=== PATIENT | female | born 1960 | race Caucasian/White ===

== ENCOUNTER 2016-07-10 18:07 | Emergency (ER) | payer MEDICAID, OTHER ==
--- NOTE | 2016-07-10 18:13 | ED Physician Chart ---
Chief Complaint/HPI - Patient Information Date Seen:: 07/10/16 Time Seen:: 18:13 Chief Complaint:: abdominal pain History of Present Illness:: 55-year-old female history of diabetes and hypertension, complains of acute, severe, aching and burning, nonradiating, upper abdominal/epigastric abdominal pain 3 hours. Has associated nausea and vomiting. Historian:: Patient Review:: Nurse's Note Reviewed Review of Systems - Review of Systems Other: Complete system review otherwise unremarkable except as noted in HPI. Past Medical History - Past Medical History Past Medical History: HTN, DM, Dyslipidemia Family History: None Social History: Non Smoker, No Alcohol, No Drug Use, Surgical History: None Psychiatricy History: None Medication: Reviewed Family Medical History - Family Member Father Ethnicity: Hx Family Cancer: No Hx Family Coronary Artery Disease: No Hx Family Congestive Heart Failure: No Hx Family Stroke: No Hx Family Seizures: No Hx Family AIDS: No Hx Family COPD: No Hx Family Psychiatric Problems: No Physical Exam - Physical Examination Other:: INITIAL VITAL SIGNS: Reviewed by me GENERAL: Alert and interactive. No acute distress HEAD: Head is normocephalic and atraumatic EYES: EOMI. . No scleral icterus. No conjunctival injection ENT: Moist mucous membranes. NECK: Supple. No masses. Full range of motion RESPIRATORY: No tachypnea. Clear breath sounds bilaterally. No wheezing, rales, or rhonchi CV: Regular rate and rhythm. No murmurs, rubs, or gallops ABDOMEN: Soft, non-distended, tenderness with guarding on deep palpation to the right upper quadrant. EXTREMITIES: No deformity. No cyanosis. No edema. SKIN: Warm and dry. No obvious rashes. NEUROLOGIC: Alert and oriented. Face is symmetric. Speech is normal. Moves all extremities equally. Motor and sensory distally intact. Labs/Radiology/EKG Results - Lab Results Results: Lab Results 07/10/16 07/10/16 07/10/16 Range/Units 18:15 18:15 18:15 WBC 11.5 H (4.8-10.8) Th/cmm RBC 4.99 (3.80-5.10) Mil/cmm Hgb 14.3 (11.7-15.5) gm/dL Hct 42.7 (35.0-45.0) % MCV 85.6 (81-100) fl MCH 28.6 (27.0-31.0) pg MCHC Differential 33.4 (28.0-36.0) pg RDW 12.1 (11.5-20.0) % Plt Count 176 (150-400) Th/cmm MPV 10.0 fl Neutrophils % 73.7 (40.0-80.0) % Lymphocytes % 19.3 L (20.0-50.0) % Monocytes % 6.0 (2.0-10.0) % Eosinophils % 0.7 (0.0-5.0) % Basophils % 0.3 (0.0-2.0) % Sodium 136 (136-145) mEq/L Potassium 3.4 L (3.5-5.1) mEq/L Chloride 98 (98-107) mEq/L Carbon Dioxide 27.4 (21.0-31.0) mEq/L Anion Gap 14.0 (7.0-16.0) BUN 12 (7-25) mg/dL Creatinine 0.7 (0.6-1.2) mg/dL Est GFR ( Amer) > 60.0 (>90) ml/min Est GFR (Non-Af Amer) > 60.0 ml/min BUN/Creatinine Ratio 17.1 Glucose 153 H (70-105) mg/dL Calcium 10.6 H (8.6-10.3) mg/dL Total Bilirubin 0.9 (0.3-1.0) mg/dL AST 166 H (13-39) U/L ALT 77 H (7-52) U/L Alkaline Phosphatase 105 H (34-104) U/L Troponin I < 0.01 L (0.01-0.05) ng/mL Total Protein 8.2 (6.0-8.3) gm/dL Albumin 4.7 (3.7-5.3) gm/dL Globulin 3.5 gm/dL Albumin/Globulin Ratio 1.3 (1.0-1.8) Amylase 40 (29-103) U/L Urine Test 07/10/16 Range/Units 19:18 WBC (4.8-10.8) Th/cmm RBC (3.80-5.10) Mil/cmm Hgb (11.7-15.5) gm/dL Hct (35.0-45.0) % MCV (81-100) fl MCH (27.0-31.0) pg MCHC Differential (28.0-36.0) pg RDW (11.5-20.0) % Plt Count (150-400) Th/cmm MPV fl Neutrophils % (40.0-80.0) % Lymphocytes % (20.0-50.0) % Monocytes % (2.0-10.0) % Eosinophils % (0.0-5.0) % Basophils % (0.0-2.0) % Sodium (136-145) mEq/L Potassium (3.5-5.1) mEq/L Chloride (98-107) mEq/L Carbon Dioxide (21.0-31.0) mEq/L Anion Gap (7.0-16.0) BUN (7-25) mg/dL Creatinine (0.6-1.2) mg/dL Est GFR ( Amer) (>90) ml/min Est GFR (Non-Af Amer) ml/min BUN/Creatinine Ratio Glucose (70-105) mg/dL Calcium (8.6-10.3) mg/dL Total Bilirubin (0.3-1.0) mg/dL AST (13-39) U/L ALT (7-52) U/L Alkaline Phosphatase (34-104) U/L Troponin I (0.01-0.05) ng/mL Total Protein (6.0-8.3) gm/dL Albumin (3.7-5.3) gm/dL Globulin gm/dL Albumin/Globulin Ratio (1.0-1.8) Amylase (29-103) U/L Urine Test NEGATIVE Lab Results 07/10/16 07/10/16 07/10/16 Range/Units 18:15 18:15 18:15 WBC 11.5 H (4.8-10.8) Th/cmm RBC 4.99 (3.80-5.10) Mil/cmm Hgb 14.3 (11.7-15.5) gm/dL Hct 42.7 (35.0-45.0) % MCV 85.6 (81-100) fl MCH 28.6 (27.0-31.0) pg MCHC Differential 33.4 (28.0-36.0) pg RDW 12.1 (11.5-20.0) % Plt Count 176 (150-400) Th/cmm MPV 10.0 fl Neutrophils % 73.7 (40.0-80.0) % Lymphocytes % 19.3 L (20.0-50.0) % Monocytes % 6.0 (2.0-10.0) % Eosinophils % 0.7 (0.0-5.0) % Basophils % 0.3 (0.0-2.0) % Sodium 136 (136-145) mEq/L Potassium 3.4 L (3.5-5.1) mEq/L Chloride 98 (98-107) mEq/L Carbon Dioxide 27.4 (21.0-31.0) mEq/L Anion Gap 14.0 (7.0-16.0) BUN 12 (7-25) mg/dL Creatinine 0.7 (0.6-1.2) mg/dL Est GFR ( Amer) > 60.0 (>90) ml/min Est GFR (Non-Af Amer) > 60.0 ml/min BUN/Creatinine Ratio 17.1 Glucose 153 H (70-105) mg/dL Whole Bld Lactic Acid (0.60-1.99) mmol/L Calcium 10.6 H (8.6-10.3) mg/dL Total Bilirubin 0.9 (0.3-1.0) mg/dL AST 166 H (13-39) U/L ALT 77 H (7-52) U/L Alkaline Phosphatase 105 H (34-104) U/L Troponin I < 0.01 L (0.01-0.05) ng/mL Total Protein 8.2 (6.0-8.3) gm/dL Albumin 4.7 (3.7-5.3) gm/dL Globulin 3.5 gm/dL Albumin/Globulin Ratio 1.3 (1.0-1.8) Amylase 40 (29-103) U/L Lipase (11-82) U/L Urine Source Urine Color Urine Clarity (CLEAR) Urine pH Ur Specific [place] (1.005-1.030) Urine Protein (NEGATIVE) mg/dL Urine Glucose (UA) (NEGATIVE) mg/dL Urine Ketones (NEGATIVE) mg/dL Urine Blood (NEGATIVE) Urine Nitrate (NEGATIVE) Urine Bilirubin (NEGATIVE) Urine Urobilinogen (0.2 - 1.0) E.U./dL Ur Leukocyte Esterase (NEGATIVE) Urine RBC (0-5) /hpf Urine WBC (0-5) /hpf Ur Epithelial Cells (FEW) /lpf Amorphous Sediment (NONE SEEN) Urine Bacteria (NONE SEEN) /hpf Urine Test 07/10/16 07/10/16 07/10/16 Range/Units 19:18 19:18 19:25 WBC (4.8-10.8) Th/cmm RBC (3.80-5.10) Mil/cmm Hgb (11.7-15.5) gm/dL Hct (35.0-45.0) % MCV (81-100) fl MCH (27.0-31.0) pg MCHC Differential (28.0-36.0) pg RDW (11.5-20.0) % Plt Count (150-400) Th/cmm MPV fl Neutrophils % (40.0-80.0) % Lymphocytes % (20.0-50.0) % Monocytes % (2.0-10.0) % Eosinophils % (0.0-5.0) % Basophils % (0.0-2.0) % Sodium (136-145) mEq/L Potassium (3.5-5.1) mEq/L Chloride (98-107) mEq/L Carbon Dioxide (21.0-31.0) mEq/L Anion Gap (7.0-16.0) BUN (7-25) mg/dL Creatinine (0.6-1.2) mg/dL Est GFR ( Amer) (>90) ml/min Est GFR (Non-Af Amer) ml/min BUN/Creatinine Ratio Glucose (70-105) mg/dL Whole Bld Lactic Acid (0.60-1.99) mmol/L Calcium (8.6-10.3) mg/dL Total Bilirubin (0.3-1.0) mg/dL AST (13-39) U/L ALT (7-52) U/L Alkaline Phosphatase (34-104) U/L Troponin I (0.01-0.05) ng/mL Total Protein (6.0-8.3) gm/dL Albumin (3.7-5.3) gm/dL Globulin gm/dL Albumin/Globulin Ratio (1.0-1.8) Amylase (29-103) U/L Lipase 27 (11-82) U/L Urine Source CLEAN C Urine Color YELLOW Urine Clarity CLOUDY H (CLEAR) Urine pH >=9.0 Ur Specific [place] 1.015 (1.005-1.030) Urine Protein 30 H (NEGATIVE) mg/dL Urine Glucose (UA) NEGATIVE (NEGATIVE) mg/dL Urine Ketones TRACE (NEGATIVE) mg/dL Urine Blood NEGATIVE (NEGATIVE) Urine Nitrate NEGATIVE (NEGATIVE) Urine Bilirubin NEGATIVE (NEGATIVE) Urine Urobilinogen 1.0 (0.2 - 1.0) E.U./dL Ur Leukocyte Esterase NEGATIVE (NEGATIVE) Urine RBC NONE SEEN (0-5) /hpf Urine WBC NONE SEEN (0-5) /hpf Ur Epithelial Cells NONE SEEN (FEW) /lpf Amorphous Sediment MANY PHOSPHATES (NONE SEEN) Urine Bacteria NONE SEEN (NONE SEEN) /hpf Urine Test NEGATIVE 07/10/16 Range/Units 19:25 WBC (4.8-10.8) Th/cmm RBC (3.80-5.10) Mil/cmm Hgb (11.7-15.5) gm/dL Hct (35.0-45.0) % MCV (81-100) fl MCH (27.0-31.0) pg MCHC Differential (28.0-36.0) pg RDW (11.5-20.0) % Plt Count (150-400) Th/cmm MPV fl Neutrophils % (40.0-80.0) % Lymphocytes % (20.0-50.0) % Monocytes % (2.0-10.0) % Eosinophils % (0.0-5.0) % Basophils % (0.0-2.0) % Sodium (136-145) mEq/L Potassium (3.5-5.1) mEq/L Chloride (98-107) mEq/L Carbon Dioxide (21.0-31.0) mEq/L Anion Gap (7.0-16.0) BUN (7-25) mg/dL Creatinine (0.6-1.2) mg/dL Est GFR ( Amer) (>90) ml/min Est GFR (Non-Af Amer) ml/min BUN/Creatinine Ratio Glucose (70-105) mg/dL Whole Bld Lactic Acid 1.86 (0.60-1.99) mmol/L Calcium (8.6-10.3) mg/dL Total Bilirubin (0.3-1.0) mg/dL AST (13-39) U/L ALT (7-52) U/L Alkaline Phosphatase (34-104) U/L Troponin I (0.01-0.05) ng/mL Total Protein (6.0-8.3) gm/dL Albumin (3.7-5.3) gm/dL Globulin gm/dL Albumin/Globulin Ratio (1.0-1.8) Amylase (29-103) U/L Lipase (11-82) U/L Urine Source Urine Color Urine Clarity (CLEAR) Urine pH Ur Specific [place] (1.005-1.030) Urine Protein (NEGATIVE) mg/dL Urine Glucose (UA) (NEGATIVE) mg/dL Urine Ketones (NEGATIVE) mg/dL Urine Blood (NEGATIVE) Urine Nitrate (NEGATIVE) Urine Bilirubin (NEGATIVE) Urine Urobilinogen (0.2 - 1.0) E.U./dL Ur Leukocyte Esterase (NEGATIVE) Urine RBC (0-5) /hpf Urine WBC (0-5) /hpf Ur Epithelial Cells (FEW) /lpf Amorphous Sediment (NONE SEEN) Urine Bacteria (NONE SEEN) /hpf Urine Test - Radiology Results Results: CT abdomen and pelvis without contrast preliminary report per radiology Large gallbladder stones No [place] No free fluid Appendix normal Enlarged uterus ASVD Diverticulosis ? 1 over the left mid ureteral stone? No obstruction - EKG Interpretations Comments:: 12-lead EKG Interpretation by Roberto Carlos Calvillo MD: Normal Sinus Rhythm with ventricular rate of 88 beats per minute Normal axis Normal intervals No acute ST or T wave changes. No obvious STEMI ED Septic Shock - . Is Septic Shock (SBP<90, OR Lactate>4 mmol\L) present?: No Reassessment (Disposition) - Reassessment Reassessment:: 55-year-old female presents with acute right upper quadrant and epigastric abdominal pain with nausea and vomiting. Laboratory indicates obstructive pattern. CT shows gallstones. Ultrasound demonstrates gallstones, common bile duct and dilated bile duct. Return for early developing cholecystitis and certainly has choledocholithiasis. Given elevated white blood cell count and obstructive pattern per labs we have given IV Zosyn. Also given IV antiemetics and normal saline. Have discussed case with surgery. I've facility does not offer ERCP or MRCP which is what she will need prior to surgery. Discussed case with [facility]. Spoke to housekeeper head. Spoke to Dr. Witt about the case. He has agreed to accept the patient under his care at [facility]. Arrangements are being made for the patient be transferred to [facility]. Reassessment Condition:: Improved - Diagnosis Diagnosis:: Acute Cholecystitis with choledocholithiasis Hypertension Diabetes mellitus type 2 - Patient Disposition Discharge/Transfer:: Acute Care (other hosp) Accepting Physician:: federico to be transferred to [facility] so she can receive ERCP Admitted to:: Med/Surg Admitting Medical Physician:: Vidal Witt Time:: 20:46 Condition at Disposition:: Improved ED Discharge Plan - Patient Disposition Admit/Discharge/Transfer: Acute Care w/in this hosp
[2016-07-10] MEDS ORDERED: Donnatal Liq 5 ML UDC PO ONE (18:14)
[2016-07-10] MEDS ORDERED: Sodium Chloride 0.9% 1,000 ML IV ONE (18:14)
[2016-07-10] MEDS ORDERED: Maalox 30 mL Cup PO ONE (18:14)
[2016-07-10] MEDS ORDERED: Prochlorperazine 5 mg/mL 2mL Vial IVP STA (18:15)
[2016-07-10 18:19] VITALS: BP 138/90
[2016-07-10] MEDS ORDERED: Prochlorperazine 5 mg/mL 2mL Vial ONE (18:23)
[2016-07-10] MEDS ORDERED: Maalox 30 mL Cup ONE (18:23)
[2016-07-10] MEDS ORDERED: Donnatal Liq 5 ML UDC ONE (18:24)
[2016-07-10 18:50] LABS: % BASOPHILS 0.3 % (0.0-2.0); % EOSINOPHILS 0.7 % (0.0-5.0); % LYMPHOCYTES 19.3 % (20.0-50.0); % NEUTROPHILS 73.7 % (40.0-80.0); HEMATOCRIT 42.7 % (35.0-45.0); HEMOGLOBIN 14.3 gm/dL (11.7-15.5); MEAN CELL VOLUME 85.6 fl (81-100); MEAN CORPUSCULAR HEMOGLOBIN 28.6 pg (27.0-31.0); MEAN CORPUSCULAR HGB CONC 33.4 pg (28.0-36.0); NEUTROPHILE ABSOLUTE 8.5 Th/cmm (1.8-8.0); PLATELET COUNT 176 Th/cmm (150-400); RED BLOOD COUNT 4.99 Mil/cmm (3.80-5.10); RED CELL DISTRIBUTION WIDTH 12.1 % (11.5-20.0); WHITE BLOOD COUNT 11.5 Th/cmm (4.8-10.8)
[2016-07-10 19:02] LABS: ALB/GLOB RATIO 1.3 (1.0-1.8); ALKALINE PHOSPHATASE 105 U/L (34-104); AMYLASE SERUM 40 U/L (29-103); BILIRUBIN,TOTAL 0.9 mg/dL (0.3-1.0); BUN - UREA NITROGEN 12 mg/dL (7-25); BUN/CREATININE RATIO 17.1; CALCIUM SERUM 10.6 mg/dL (8.6-10.3); CARBON DIOXIDE 27.4 mEq/L (21.0-31.0); CHLORIDE 98 mEq/L (98-107); CREATININE - SERUM 0.7 mg/dL (0.6-1.2); GLUCOSE 153 mg/dL (70-105); POTASSIUM SERUM 3.4 mEq/L (3.5-5.1); SGOT 166 U/L (13-39); SGPT/ALT 77 U/L (7-52); SODIUM SERUM 136 mEq/L (136-145)
[2016-07-10] MEDS ORDERED: Morphine Sulfate 2 mg/mL 1mL Syr IVP ONE (19:27)
[2016-07-10] MEDS ORDERED: Piperacillin Sodium/Tazobact 3.375 gm Vial IV ONE (19:30)
[2016-07-10] MEDS ORDERED: Morphine Sulfate 2 mg/mL 1mL Syr ONE (19:30)
[2016-07-10 19:44] LABS: URINE BILIRUBIN NEGATIVE (NEGATIVE); URINE COLOR YELLOW; URINE GLUCOSE (UA) NEGATIVE (NEGATIVE)
[2016-07-10 19:45] LABS: URINE BLOOD NEGATIVE (NEGATIVE); URINE KETONE TRACE mg/dL (NEGATIVE); URINE PH >=9.0; URINE PROTEIN 30 mg/dL (NEGATIVE)
[2016-07-10 19:46] LABS: URINE BACTERIA NONE SEEN /hpf (NONE SEEN); URINE EPITHELIAL CELLS NONE SEEN /lpf (FEW); URINE RBC NONE SEEN /hpf (0-5); URINE WBC NONE SEEN /hpf (0-5)
[2016-07-10 19:47] LABS: URINE AMORPHOUS SEDIMENT MANY PHOSPHATES (NONE SEEN)
--- NOTE | 2016-07-11 10:02 | Diagnostic Imaging Report ---
CT abdomen and pelvis without intravenous contrast Indication: Epigastric pain Comparison: Ultrasound abdomen the same day, Technique: Axial images were obtained from the lung bases to the bilateral proximal femurs without IV contrast. Coronal reconstructions were made. total DLP: 532, CTDI10.0 FINDINGS: Hypoventilatory and atelectatic changes of the lung bases are noted. Assessment of the solid organs is limited due to lack of IV contrast. There is fatty infiltration of the liver. No evidence of focal lesions. Large gallstones are noted. No evidence of surrounding inflammatory changes along the gallbladder. No focal splenic, pancreatic, or adrenal lesions. No evidence of hydronephrosis. There is 2 mm calcification seen along the mid left retroperitoneum. Left adnexal 1 cm calcification is noted. Diverticulosis is noted without evidence of diverticulitis. No evidence of acute appendicitis. No evidence of free abdominal fluid or free abdominal air. Degenerative changes of the pubic symphysis joint is noted. Moderate atherosclerosis is noted. There is mild diastases of the midline abdominal wall with adjacent loops of bowel. No discrete herniation identified. IMPRESSION: Cholelithiasis. Diverticulosis without evidence of diverticulitis 2 mm calcification along the mid left retroperitoneum favoring a vascular phlebolith. A small left ureteral stone is considered less likely. No evidence of hydronephrosis. 1 cm calcification in the left adnexa which may be due to small partially calcified pedunculated fibroid versus possible left ovarian calcifications. If indicated short-term follow-up ultrasound would provide additional detail and assessment Moderate atherosclerotic vascular disease. Hepatic steatosis.
--- NOTE | 2016-07-11 10:05 | Diagnostic Imaging Report ---
Ultrasound right upper quadrant, limited HISTORY: Gallstones COMPARISON: CT abdomen and pelvis performed the same day Technique: Sonography of the right upper quadrant was performed in multiple planes. FINDINGS: The liver demonstrates increased echogenicity and measures 17 cm. The liver margins are not well-defined due to bowel gas, however, no focal lesions identified. Multiple gallstones are noted. The gallbladder wall measures 2.7 mm. The common bile duct measures up to 7 mm. There may be a common bile duct stone. Assessment of pancreas is limited due to bowel gas. IMPRESSION: Multiple gallstones noted. There is also borderline prominence of the common bile duct measuring 7 mm. Note that a small common bile duct stone cannot be excluded. If indicated MRCP may be obtained for further assessment. Borderline prominent liver with increased echogenicity likely due to fatty infiltration.
== END 2016-07-10 23:05 | disposition short-term general hospital (02) ==
LOC: ER 18:07
DX: K80.00 Calculus of gallbladder with acute cholecystitis without obstruction (principal); I10 Essential (primary) hypertension; E11.9 Type 2 diabetes mellitus without complications; E78.5 Hyperlipidemia, unspecified
CPT/HCPCS: 36415-UA; 76705-TC; 80053-TC; 81001-TC; 81025-TC; 82150-TC; 83605; 83690-TC; 84484-TC; 85025-TC; 93005; 96375; J0780; J1885; J2270; J2405; J2543; J3490; J7030